=== PATIENT | male | born 1955 | race Caucasian/White ===

== ENCOUNTER 2020-05-24 10:10 | Day surgery (SDC) | payer OTHER, SELFPAY ==
[2020-05-18 16:12] VITALS: BMI 28.0
--- NOTE | 2020-05-21 13:16 | MHC.SHP ---
Pre-Procedural Eval Section A The patient is an INPATIENT: No The History & Physical has been completed within 30 days and I have reviewed it.: Yes Section B Chief Complaint: Bilateral Dermatochalasis Allergies: Allergies Allergy/AdvReac Type Severity Reaction Status Date / Time No Known Allergies Allergy Verified 05/18/20 16:10 [No Known Allergies*] Plan Diagnosis/Plan: Unchanged I have reviewed the history and physical and performed a pertinent physical examination on my patient. No changes have occurred unless specified.
[2020-05-24 11:43] VITALS: BP 137/73; PULSE 79; RESP 18; TEMP 36.4; O2SAT 97
--- NOTE | 2020-05-24 11:50 | HO.ANESPROP2 ---
HPI - Anesthesia Eval Consult details Narrative: 65 yo male patient here for bilateral blepharoplasty PMFSH Past Medical History Medical History (Updated 05/24/20 @ 13:27 by Vivi Hardy) Calcium pyrophosphate deposition disease Dysplastic nevus Erectile dysfunction Hx of chest pain Hypocholesteremia Impaired fasting glucose Low back pain Neuralgia Osteoarthritis of knee Prostatic hypertrophy Sciatica Family History Family history of problems with anesthesia: No Surgical History Surgical History (Updated 05/18/20 @ 16:10 by Mari Bustamante) H/O arthroscopic knee surgery H/O hand surgery History of arthroplasty of right knee Hx of colonoscopy S/P rotator cuff repair History of Problems with Anesthesia: No Social History Social History (Updated 05/18/20 @ 16:12 by Mari Bustamante) Alcohol intake: current Alcohol intake frequency: a few times a month Smoking Status: Never smoker Use of substances other than those prescribed or required for medical reasons: No Advance Directives: No Advance Directives Information Provided: No Advance Directives on File: No Meds Allergies Allergy/AdvReac Type Severity Reaction Status Date / Time No Known Allergies Allergy Verified 05/18/20 16:10 [No Known Allergies*] Active Medications: Current Medications Generic Name Dose Route Start Last Admin Trade Name Freq PRN Reason Stop Dose Admin Sodium Chloride 500 mls @ 50 mls/hr 05/24/20 06:00 Ns IV 05/24/20 15:59 .Q10H RICHARD Povidone Iodine 1 appl 05/24/20 11:38 Povidone Iodine 5 % Ophth Soln 30 Ml Bottle EYE-BOTH PREOP PRN Pre-Op Surgical Implant Prophy Tetracaine HCl 1 drop 05/24/20 11:38 Tetracaine Hcl/Pf 0.5% Oph Delia 4 Ml Drops EYE-BOTH 05/24/20 11:39 PREOP ONE Home Medications Medication Instructions Recorded Confirmed Last Taken Type atorvastatin 1 tab PO DAILY 05/18/20 05/18/20 Unknown History neomycin-polymyxin B-dexameth 0.5 OPHTHALMIC (EYE) TID 05/18/20 Unknown History sildenafil 1 tab PO DAILY 05/18/20 05/18/20 Unknown History tamsulosin 1 cap PO DAILY 05/18/20 05/18/20 Unknown History Exam Exam Date and Time: May 24, 2020 1150 Height,Weight and Vital Signs: Height 5 ft 9 in Weight 86.183 kg Last Vital Signs Temp 97.5 F 05/24/20 11:43 Pulse 79 05/24/20 11:43 Resp 18 05/24/20 11:43 BP 137/73 05/24/20 11:43 Pulse Ox 97 05/24/20 11:43 Airway Mallampati Class: II TM Dist: >3cm Neck ROM: Full Heart: RRR Lungs: CTAB Assessment and Plan Assessment Anesthesia Assessment: Anesthesia Plan Discussed and Chart Reviewed Final Anesthetic Review NPO: Yes ASA Class: II Final Preanesthetic Review: No Changes in Pt Med Stat, Meds/Allgs Chart Reviewed, Consent Obtained/Reviewed and Anes Risks/Benef Reviewed Patient Risk: Low Procedure Risk: Low Assessment/Block/Sedation in SS: Assess/Block/Sedation-SS Anesthetic Plan Anesthetic Plan: GA Disposition: Standard PACU
[2020-05-24] MEDS: 0.9 % Sodium Chloride 500 ML 50 ML IV (12:00)
--- NOTE | 2020-05-24 13:33 | HO.PNOPHT ---
Ophthalmology Procedure Procedure Date of Service: 05/24/20 Ophthalmology Viscoelastic: Not Applicable Ophthalmology Lenses: Not Applicable Procedure Notes: PREOPERATIVE DIAGNOSIS: Decreased visual field secondary to dermatochalasia POSTOPERATIVE DIAGNOSIS: Same PROCEDURE: Bilateral Blepharoplasty, upper eyelids SURGEON: Jeovanny Alfredo M.D. ANESTHESIA: Local with sedation ESTIMATED BLOOD LOSS: None COMPLICATIONS: None After obtaining informed consent, the patient was brought to the operating room and placed in supine position. After adequate sedation per Anesthesia, the eyes were prepped and draped in the usual sterile fashion. Attention was directed to the right eye where a double pinch test was completed to assure excess tissue was not removed from the upper lid. The margin was marked at the proposed incision sites. The left eye was done in a similar fashion. 2% Lidocaine with epinephrine was then instilled subcutaneously along the margin of the pre-marked skin incisions. #15 scalpel blade was then utilized to create the incisions. Using a combination of sharp and blunt dissection with Millie scissors, the epidermis was removed. Hemostasis was achieved with cautery. 6-0 plain suture was then utilized to close the incision site. Attention was directed to the left upper lid where subcutaneous 2% with Epinephrine Lidocaine was instilled along the pre-marked areas. A #15 scalpel blade was then utilized to create the incisions followed by sharp and blunt dissection with Millie scissors to remove the overlying epidermis. Hemostasis was achieved with cautery, followed by closure with 6-0 plain suture. The patient tolerated the procedure well. The patient will be followed up in the a.m. Topical antibiotic ointment was instilled over the incision sites and ice as tolerated for 48 hours.
[2020-05-24 14:41] VITALS: BP 117/61; PULSE 77; RESP 20; TEMP 37.4; O2SAT 97
== END 2020-05-24 15:23 | disposition home or self-care (01) ==
PROVIDERS: PCP Internal Medicine; Visit Provider Ophthalmology
PROC: (CPT 15823; principal; 2020-05-24 13:10)
DX: H02.834 Dermatochalasis of left upper eyelid (principal); H02.831 Dermatochalasis of right upper eyelid; Z79.899 Other long term (current) drug therapy; Z87.891 Personal history of nicotine dependence
CPT/HCPCS: 15823; J1100; J1885; J2250; J2405; J3010